=== PATIENT | female | born 1985 | race Caucasian/White ===

== ENCOUNTER 2024-08-06 09:45 | Outpatient (RCR) | payer OTHER, SELFPAY ==
--- NOTE | 2024-02-13 17:16 | PT.OIE ---
Current Diagnoses Stress incontinence (female) (male) (02/13/24) Past Medical History (Last Updated 01/23/24 @ 20:36 by Urszula Robles) Abnormal Pap smear of cervix (~2011) Anxiety Chicken pox (~1997) Depression (~2007) Human papilloma virus (~2012) KENNETH (stress urinary incontinence, female) Past Surgical History (Last Updated 01/23/24 @ 20:36 by Urszula Robles) Vaginal delivery Visit Care Team Role Provider Type Erica Neves DO Family Provider Non-Staff Primary Care Provider Specialty: Medical Address: [address] [place] [address], [id number] Email: Loretta Valdovinos DO Attending Provider Physician Referring Provider Specialty: PROFESSOR OF VEGETABLE SCIENCE Address: [address] [place] [address], [address], [address] Email: [email or web address] Physical Therapy Initial Evaluation PT-OP-A Visit Information Start: 02/07/24 17:13 Freq: Status: Active Protocol: Document 02/13/24 13:48 LRN (Rec: 02/13/24 17:11 LRN [id number]) Out-Patient Physical Therapy Visit Information Visit Information Visit Type Initial Evaluation Visit Start Time 13:48 Visit Stop Time 14:33 Visit Number 1 Evaluation Information Evaluation Date 02/13/24 Precautions Precautions None. PT-OP-B Current Condition Start: 02/07/24 17:13 Freq: Status: Active Protocol: Document 02/13/24 13:48 LRN (Rec: 02/13/24 17:11 LRN [id number]) Current Condition History of Current Condition Onset Date 10/2016 Current Complaints Leaks with running, jumping, sneezing, lifting, walking depending on cycle. History of Current Condition Pt reports having urinary incontinence during late stages of of her first (in the [place]). She states her leaking is worsening after because she is doing more strenuous exercise. She wears a thick pad at gym, that fills up and sometimes she has to change into another one. If seh ex's in the morning she can wear a thinner pad. She also reports going to the bathroom frequently. She has urinary leakage with exercise, running, sometimes walking, lifting, sneezing and coughing. Prior Treatments and Tests She was on a wait list for PT, but [place]. Developmental History Developmental History Pt has 2 children, ages 4 & 7 (births 12/2016 & 09/2019), both vaginal births. 1st resulted in episotomy with vacuum extraction, 2nd was in a tub, normal vaginal . Pt is a [place] national, living in since 11/2021. Pt states she was referred to Loretta Valdovinos DO by Erica Neves from the [employer]. . Prior to pt reports running 4-5x/wk, 3-5 miles per run. She was active playing basketball and hiking . Delivered positions: 1st - on back, 2nd - in bath, partially on back with L leg lifted and held by spouse. Treatment Goals Patient/Caregiver Goals Pt goals: Eliminate urinary incontinence with exercise activities and activities causing leakage. Pt agreeable to a HEP, and education. 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 PT-OP-C Subjective Start: 02/07/24 17:13 Freq: Status: Active Protocol: Document 02/13/24 13:48 LRN (Rec: 02/13/24 17:11 LRN [id number]) Patient Questionnaires Pelvic Pain and Urgency/Frequency Patient Symptom Scale Pelvic Pain Score 9 PT-OP-I Pelvic Floor Start: 02/07/24 17:13 Freq: Status: Active Protocol: Document 02/13/24 13:48 LRN (Rec: 02/13/24 17:11 LRN [id number]) Pelvic Floor Assessment Urine Pelvic Floor Surgery No: episiotomy during childbirth Urinary Symptoms Incomplete Emptying Leakage Size Large Leakage Cause Cough,Exercise,Lifting,Sneeze Leaks Per Day 1 Voiding Frequency 5 Nocturia 1 Urine Pad Type Maxi Pad Bowel Other Bowel Symptoms Just before period, BM's every other day. Bowel Movement Frequency daily Brown Stool Chart Comments type 3-4 Pelvic Clock Pelvic Clock 12-3 Tenderness Pelvic Clock 3-6 Tenderness Pelvic Clock 6-9 Tenderness Pelvic Clock 9-12 Tenderness Prolapse Cystocele Grade 2 Perineal Descent Bearing Present Contraction Ability Manual Muscle Testing Left 2 Manual Muscle Testing Right 2 Manual Muscle Testing Anterior 2 Manual Muscle Testing Posterior 1 Muscle Endurance (Seconds) 3 Number of Quick Contractions In 10 3 Seconds PT-OP-J Posture/Palpation/Skin Start: 02/07/24 17:13 Freq: Status: Active Protocol: Document 02/13/24 13:48 LRN (Rec: 02/13/24 17:11 LRN [id number]) Posture Evaluation Position Standing T-Spine Posture Flattened L-Spine Posture Decreased Lordosis Shoulder Posture (L) Elevated Foot Arch (R) Medium Arch,(L) Low Arch Comments Posture Comments Outward bowing of lower legs, mild dowagers hump, slight low L ilac crest. R foot positioned fwrd of L foot. Palpation Assessment Location Abdomen Palpation Location Diastas Rectus Palpation Details Umbilicus 3 above: closed Umbilicus 2 above: 1.0 finger widths Umbilicus 1 above: 1.5 finger widths Umbilicus Umbilicus: 1 below: 1.5 finger widths Umbilicus: 2 below: closed PT-OP-K Range of Motion Start: 02/07/24 17:13 Freq: Status: Active Protocol: Document 02/13/24 13:48 LRN (Rec: 02/13/24 17:11 LRN [id number]) Lumbar Spine Range of Motion Lumbar Spine Active Degrees Testing Position Standing Flexion 90 Extension 12 Rotation Left 20 Rotation Right 25 Lateral Flexion Left 12 Lateral Flexion Right 3 ROM Limitations Soft Tissue Tightness Hip Goniometric Range of Motion Hip Right Passive Testing Position Supine Internal Rotation 35 External Rotation 50 Left Passive Testing Position Supine Internal Rotation 40 External Rotation 35 PT-OP-M Strength Start: 02/07/24 17:13 Freq: Status: Active Protocol: Document 02/13/24 13:48 LRN (Rec: 02/13/24 17:11 LRN [id number]) Trunk Strength Trunk Manual Muscle Testing Core Stabilization Pt was able to maintain core stability with MMT of hips. Hip Strength Hip Manual Muscle Testing Right Comments Strength is 5/5. Left Internal Rotation 4+ Good+ Comments Strength is 5/5 except as indicated above. PT-OP-Q Treatments Start: 02/07/24 17:13 Freq: Status: Active Protocol: Document 02/13/24 13:48 LRN (Rec: 02/13/24 17:11 LRN [id number]) Self-Care/Home Management Treatment Education Patient Education Home Exercise Program Other Education Discussed results of evaluation, goals, and plan of care (POC) with pt, discussed attendance/cx/dns policy; pt agreeable to goals, attendance /cx/dns policy and POC. Activities Self-Care/Home Management Activities Issued HEP of Kegel ex's: Quick Flicks, Long holds, & Aggrevators. Pt instructed to get relaxation after contractions and to stop if getting PF pain. PT-OP-T Assessment and Plan Start: 02/07/24 17:13 Freq: Status: Active Protocol: Document 02/13/24 13:48 LRN (Rec: 02/13/24 17:11 LRN [id number]) Physical Therapy Assessment Rehab Potential Rehabilitation Potential Good Evaluation Complexity Number of Personal Factors/Comorbidities 1-2 Number of Body Systems Impaired 4 or More Clinical Presentation at Evaluation Evolving Impairments Impairments Activity Tolerance,Pain, Posture,ROM,Soft Tissue Mobility,Strength Other Impairments Possible run mechanics due to decreased plantar arch of L foot. Goals Two Impairment Stress Urinary Leakage w/ running, coughing, sneezing, lifting, occ walk Short Term Goal (STG) Improve PF strength and modify positioning to reduce feeling of incomplete emptying after urination, no leakage with coughing, sneezing or lifting. STG Duration 6 wks-03/28/24 Destination Imagination Coordinator Goal (LTG) Eliminate urinary incontinence with occasional walking and light running. LTG Duration 12 wks-05/09/24 One Impairment Pt lacks appropriate self care HEP. Short Term Goal (STG) Education in proper methods for transfer with coordination of breathing, PF contractions , and proper vulvar/genital care. STG Duration 6 wks-03/28/24 Senior Care Goal (LTG) Pt will be independent with a self care HEP of PF/core strengthening and hip/trunk ROM exercises. LTG Duration 12 wks-05/09/24 Assessment Summary Assessment Pt is a 38 yo female who presents with stress urinary incontinence, PF tenderness around the PF clock and weakness of contractions, cystocele, and urethrocele, asymmetry of hip/trunk mobility, mild diastasis rectus and mild core instability, and postural deviations with mechanical changes of gait/run. PF long hold strength is 3 secs and quick contractions before weakening of contraction is 3 reps. Pt has tightness of hip R>L IR, L>R ER; trunk R SB , L rot. She demonstrates mild decrease in core rot stability. The pt will benefit from skilled physical therapy to improve PF strength and tenderness, improve symmetry of hip/trunk mobility , and improve awareness to relax and normalize PF ms tone , and improve core stability, in order to achieve the above stated goals. Pt believes she is limited by her insurance to 6 visits at a time; therefore her long-term goals might not be met if she is not able to complete her plan of care due to financial concerns over the number of visits approved. Physical Therapy Plan Frequency and Duration Frequency of Treatment 1x/Week Duration of treatment (weeks) 12 Plan of Care Start Date 02/13/24 Plan of Care End Date 05/09/24 Therapeutic Interventions Therapeutic Interventions Gait Training,Home Exercise Program,Joint Mobilizations, Manual Therapy,Neuromuscular Re-education,Self-Care/Home Management,Soft Tissue Mobilization,Taping, Therapeutic Activities, Therapeutic Exercises Modalities Biofeedback,Electric Stimulation Next Visit Focus/Plan Next Note Type Treatment Note Next Visit Plan Next: Assess bladder diary (pt bowel's are normal) with recommendations as appropriate . Assess PF in standing. VEMG PF assessment. Check hip AB mobility and issue ex if needed. Deep Breathing (DB ) training if needed, and awareness training to relax PF with DBing, and breath relaxation techniques, EXERS: Hip stretch (R>L IR, L>R ER), trunk stretch (trunk R SB, L rot) & core strengthening ( deep rotators). Education in proper methods for transfer with coordination of breathing and genital/vulvar care, and proper body mechanics coordinating breathwork . If needed, educate in bladder irritants. POC: 12 visits, pt believes she is allowed 6 visits, with possible approval later. PF/ core Strengthening, EXER stretches, manual abdominal soft tissue mob (uterus/ bladder/urachus), Gait/ running training, biofeedback, neuro-reeduc.
--- NOTE | 2024-02-13 17:18 | PT.OIE ---
Current Diagnoses Stress incontinence (female) (male) (02/13/24) Past Medical History (Last Updated 01/23/24 @ 20:36 by Urszula Robles) Abnormal Pap smear of cervix (~2011) Anxiety Chicken pox (~1997) Depression (~2007) Human papilloma virus (~2012) KENNETH (stress urinary incontinence, female) Past Surgical History (Last Updated 01/23/24 @ 20:36 by Urszula Robles) Vaginal delivery Visit Care Team Role Provider Type Erica Neves DO Family Provider Non-Staff Primary Care Provider Specialty: Medical Address: [address] [place] [address], [id number] Email: Loretta Valdovinos DO Attending Provider Physician Referring Provider Specialty: ROUTE AGENT Address: [address] [place] [address], [address], [address] Email: [email or web address] Physical Therapy Initial Evaluation PT-OP-A Visit Information Start: 02/07/24 17:13 Freq: Status: Active Protocol: Document 02/13/24 13:48 LRN (Rec: 02/13/24 17:11 LRN [id number]) Out-Patient Physical Therapy Visit Information Visit Information Visit Type Initial Evaluation Visit Start Time 13:48 Visit Stop Time 14:33 Visit Number 1 Evaluation Information Evaluation Date 02/13/24 Precautions Precautions None. PT-OP-B Current Condition Start: 02/07/24 17:13 Freq: Status: Active Protocol: Document 02/13/24 13:48 LRN (Rec: 02/13/24 17:11 LRN [id number]) Current Condition History of Current Condition Onset Date 10/2016 Current Complaints Leaks with running, jumping, sneezing, lifting, walking depending on cycle. History of Current Condition Pt reports having urinary incontinence during late stages of of her first (in the [place]). She states her leaking is worsening after because she is doing more strenuous exercise. She wears a thick pad at gym, that fills up and sometimes she has to change into another one. If seh ex's in the morning she can wear a thinner pad. She also reports going to the bathroom frequently. She has urinary leakage with exercise, running, sometimes walking, lifting, sneezing and coughing. Prior Treatments and Tests She was on a wait list for PT, [place]. Developmental History Developmental History Pt has 2 children, ages 4 & 7 (births 12/2016 & 09/2019), both vaginal births. 1st resulted in episotomy with vacuum extraction, 2nd was in a tub, normal vaginal . Pt is a [place] national, living in since 11/2021. Pt states she was referred to Tamara Rider, [place] [place] [employer]. Prior to pt reports running 4-5x/wk, 3-5 miles per run. She was active playing basketball and hiking. Delivered positions: 1st - on back, 2nd - in bath, partially on back with L leg lifted and held by spouse. Treatment Goals Patient/Caregiver Goals Pt goals: Eliminate urinary incontinence with exercise activities and activities causing leakage. Pt agreeable to a HEP, and education. 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 PT-OP-C Subjective Start: 02/07/24 17:13 Freq: Status: Active Protocol: Document 02/13/24 13:48 LRN (Rec: 02/13/24 17:11 LRN [id number]) Patient Questionnaires Pelvic Pain and Urgency/Frequency Patient Symptom Scale Pelvic Pain Score 9 PT-OP-I Pelvic Floor Start: 02/07/24 17:13 Freq: Status: Active Protocol: Document 02/13/24 13:48 LRN (Rec: 02/13/24 17:11 LRN [id number]) Pelvic Floor Assessment Urine Pelvic Floor Surgery No: episiotomy during childbirth Urinary Symptoms Incomplete Emptying Leakage Size Large Leakage Cause Cough,Exercise,Lifting,Sneeze Leaks Per Day 1 Voiding Frequency 5 Nocturia 1 Urine Pad Type Maxi Pad Bowel Other Bowel Symptoms Just before period, BM's every other day. Bowel Movement Frequency daily [facility] Stool Chart Comments type 3-4 Pelvic Clock Pelvic Clock 12-3 Tenderness Pelvic Clock 3-6 Tenderness Pelvic Clock 6-9 Tenderness Pelvic Clock 9-12 Tenderness Prolapse Cystocele Grade 2 Perineal Descent Bearing Present Contraction Ability Manual Muscle Testing Left 2 Manual Muscle Testing Right 2 Manual Muscle Testing Anterior 2 Manual Muscle Testing Posterior 1 Muscle Endurance (Seconds) 3 Number of Quick Contractions In 10 3 Seconds PT-OP-J Posture/Palpation/Skin Start: 02/07/24 17:13 Freq: Status: Active Protocol: Document 02/13/24 13:48 LRN (Rec: 02/13/24 17:11 LRN [id number]) Posture Evaluation Position Standing T-Spine Posture Flattened L-Spine Posture Decreased Lordosis Shoulder Posture (L) Elevated Foot Arch (R) Medium Arch,(L) Low Arch Comments Posture Comments Outward bowing of lower legs, mild dowagers hump, slight low L ilac crest. R foot positioned fwrd of L foot. Palpation Assessment Location Abdomen Palpation Location Diastas Rectus Palpation Details Umbilicus 3 above: closed Umbilicus 2 above: 1.0 finger widths Umbilicus 1 above: 1.5 finger widths Umbilicus Umbilicus: 1 below: 1.5 finger widths Umbilicus: 2 below: closed PT-OP-K Range of Motion Start: 02/07/24 17:13 Freq: Status: Active Protocol: Document 02/13/24 13:48 LRN (Rec: 02/13/24 17:11 LRN [id number]) Lumbar Spine Range of Motion Lumbar Spine Active Degrees Testing Position Standing Flexion 90 Extension 12 Rotation Left 20 Rotation Right 25 Lateral Flexion Left 12 Lateral Flexion Right 3 ROM Limitations Soft Tissue Tightness Hip Goniometric Range of Motion Hip Right Passive Testing Position Supine Internal Rotation 35 External Rotation 50 Left Passive Testing Position Supine Internal Rotation 40 External Rotation 35 PT-OP-M Strength Start: 02/07/24 17:13 Freq: Status: Active Protocol: Document 02/13/24 13:48 LRN (Rec: 02/13/24 17:11 LRN [id number]) Trunk Strength Trunk Manual Muscle Testing Core Stabilization Pt was able to maintain core stability with MMT of hips. Hip Strength Hip Manual Muscle Testing Right Comments Strength is 5/5. Left Internal Rotation 4+ Good+ Comments Strength is 5/5 except as indicated above. PT-OP-Q Treatments Start: 02/07/24 17:13 Freq: Status: Active Protocol: Document 02/13/24 13:48 LRN (Rec: 02/13/24 17:11 LRN [id number]) Self-Care/Home Management Treatment Education Patient Education Home Exercise Program Other Education Discussed results of evaluation, goals, and plan of care (POC) with pt, discussed attendance/cx/dns policy; pt agreeable to goals, attendance /cx/dns policy and POC. Activities Self-Care/Home Management Activities Issued HEP of Kegel ex's: Quick Flicks, Long holds, & Aggrevators. Pt instructed to get relaxation after contractions and to stop if getting PF pain. PT-OP-T Assessment and Plan Start: 02/07/24 17:13 Freq: Status: Active Protocol: Document 02/13/24 13:48 LRN (Rec: 02/13/24 17:11 LRN [id number]) Physical Therapy Assessment Rehab Potential Rehabilitation Potential Good Evaluation Complexity Number of Personal Factors/Comorbidities 1-2 Number of Body Systems Impaired 4 or More Clinical Presentation at Evaluation Evolving Impairments Impairments Activity Tolerance,Pain, Posture,ROM,Soft Tissue Mobility,Strength Other Impairments Possible run mechanics due to decreased plantar arch of L foot. Goals Two Impairment Stress Urinary Leakage w/ running, coughing, sneezing, lifting, occ walk Short Term Goal (STG) Improve PF strength and modify positioning to reduce feeling of incomplete emptying after urination, no leakage with coughing, sneezing or lifting. STG Duration 6 wks-03/28/24 Jail Goal (LTG) Eliminate urinary incontinence with occasional walking and light running. LTG Duration 12 wks-05/09/24 One Impairment Pt lacks appropriate self care HEP. Short Term Goal (STG) Education in proper methods for transfer with coordination of breathing, PF contractions , and proper vulvar/genital care. STG Duration 6 wks-03/28/24 Regulatory Analyst Goal (LTG) Pt will be independent with a self care HEP of PF/core strengthening and hip/trunk ROM exercises. LTG Duration 12 wks-05/09/24 Assessment Summary Assessment Pt is a 38 yo female who presents with stress urinary incontinence, PF tenderness around the PF clock and weakness of contractions, cystocele, and urethrocele, asymmetry of hip/trunk mobility, mild diastasis rectus and mild core instability, and postural deviations with mechanical changes of gait/run. PF long hold strength is 3 secs and quick contractions before weakening of contraction is 3 reps. Pt has tightness of hip R>L IR, L>R ER; trunk R SB , L rot. She demonstrates mild decrease in core rot stability. The pt will benefit from skilled physical therapy to improve PF strength and tenderness, improve symmetry of hip/trunk mobility , and improve awareness to relax and normalize PF ms tone , and improve core stability, in order to achieve the above stated goals. Pt believes she is limited by her insurance to 6 visits at a time; therefore her long-term goals might not be met if she is not able to complete her plan of care due to financial concerns over the number of visits approved. Physical Therapy Plan Frequency and Duration Frequency of Treatment 1x/Week Duration of treatment (weeks) 12 Plan of Care Start Date 02/13/24 Plan of Care End Date 05/09/24 Therapeutic Interventions Therapeutic Interventions Gait Training,Home Exercise Program,Joint Mobilizations, Manual Therapy,Neuromuscular Re-education,Self-Care/Home Management,Soft Tissue Mobilization,Taping, Therapeutic Activities, Therapeutic Exercises Modalities Biofeedback,Electric Stimulation Next Visit Focus/Plan Next Note Type Treatment Note Next Visit Plan Next: Assess bladder diary (pt bowel's are normal) with recommendations as appropriate . Assess PF in standing. VEMG PF assessment. Check hip AB mobility and issue ex if needed. Deep Breathing (DB ) training if needed, and awareness training to relax PF with DBing, and breath relaxation techniques, EXERS: Hip stretch (R>L IR, L>R ER), trunk stretch (trunk R SB, L rot) & core strengthening ( deep rotators). Education in proper methods for transfer with coordination of breathing and genital/vulvar care, and proper body mechanics coordinating breathwork . If needed, educate in bladder irritants. POC: 12 visits, pt believes she is allowed 6 visits, with possible approval later. PF/ core Strengthening, EXER stretches, manual abdominal soft tissue mob (uterus/ bladder/urachus), Gait/ running training, biofeedback, neuro-reeduc.
--- NOTE | 2024-02-13 17:19 | PT.OPPOC ---
Addendum entered and electronically signed by Yoli Vazquez, PT 02/13/24 17:19: Resending Original Note: Physical, Occupational & Speech Therapy At [facility] Current Diagnoses Stress incontinence (female) (male) (02/13/24) Visit Care Team Role Provider Type Erica Neves DO Family Provider Non-Staff Primary Care Provider Specialty: Medical Address: [address] [place] [address], [id number] Email: Loretta Valdovinos DO Attending Provider Physician Referring Provider Specialty: FLOAT TENDER Address: [address] [place] [address], [address], [place], [address] Email: [email or web address] Of Care PT-OP-T Assessment and Plan Start: 02/07/24 17:13 Freq: Status: Active Protocol: Document 02/13/24 13:48 LRN (Rec: 02/13/24 17:11 LRN [id number]) Physical Therapy Assessment Rehab Potential Rehabilitation Potential Good Evaluation Complexity Number of Personal Factors/Comorbidities 1-2 Number of Body Systems Impaired 4 or More Clinical Presentation at Evaluation Evolving Impairments Impairments Activity Tolerance,Pain, Posture,ROM,Soft Tissue Mobility,Strength Other Impairments Possible run mechanics due to decreased plantar arch of L foot. Goals Two Impairment Stress Urinary Leakage w/ running, coughing, sneezing, lifting, occ walk Short Term Goal (STG) Improve PF strength and modify positioning to reduce feeling of incomplete emptying after urination, no leakage with coughing, sneezing or lifting. STG Duration 6 wks-03/28/24 Casino Floorperson Goal (LTG) Eliminate urinary incontinence with occasional walking and light running. LTG Duration 12 wks-05/09/24 One Impairment Pt lacks appropriate self care HEP. Short Term Goal (STG) Education in proper methods for transfer with coordination of breathing, PF contractions , and proper vulvar/genital care. STG Duration 6 wks-03/28/24 Penitentiary Goal (LTG) Pt will be independent with a self care HEP of PF/core strengthening and hip/trunk ROM exercises. LTG Duration 12 wks-05/09/24 Assessment Summary Assessment Pt is a 38 yo female who presents with stress urinary incontinence, PF tenderness around the PF clock and weakness of contractions, cystocele, and urethrocele, asymmetry of hip/trunk mobility, mild diastasis rectus and mild core instability, and postural deviations with mechanical changes of gait/run. PF long hold strength is 3 secs and quick contractions before weakening of contraction is 3 reps. Pt has tightness of hip R>L IR, L>R ER; trunk R SB , L rot. She demonstrates mild decrease in core rot stability. The pt will benefit from skilled physical therapy to improve PF strength and tenderness, improve symmetry of hip/trunk mobility , and improve awareness to relax and normalize PF ms tone , and improve core stability, in order to achieve the above stated goals. Pt believes she is limited by her insurance to 6 visits at a time; therefore her long-term goals might not be met if she is not able to complete her plan of care due to financial concerns over the number of visits approved. Physical Therapy Plan Frequency and Duration Frequency of Treatment 1x/Week Duration of treatment (weeks) 12 Plan of Care Start Date 02/13/24 Plan of Care End Date 05/09/24 Therapeutic Interventions Therapeutic Interventions Gait Training,Home Exercise Program,Joint Mobilizations, Manual Therapy,Neuromuscular Re-education,Self-Care/Home Management,Soft Tissue Mobilization,Taping, Therapeutic Activities, Therapeutic Exercises Modalities Biofeedback,Electric Stimulation Next Visit Focus/Plan Next Note Type Treatment Note Next Visit Plan Next: Assess bladder diary (pt bowel's are normal) with recommendations as appropriate . Assess PF in standing. VEMG PF assessment. Check hip AB mobility and issue ex if needed. Deep Breathing (DB ) training if needed, and awareness training to relax PF with DBing, and breath relaxation techniques, EXERS: Hip stretch (R>L IR, L>R ER), trunk stretch (trunk R SB, L rot) & core strengthening ( deep rotators). Education in proper methods for transfer with coordination of breathing and genital/vulvar care, and proper body mechanics coordinating breathwork . If needed, educate in bladder irritants. POC: 12 visits, pt believes she is allowed 6 visits, with possible approval later. PF/ core Strengthening, EXER stretches, manual abdominal soft tissue mob (uterus/ bladder/urachus), Gait/ running training, biofeedback, neuro-reeduc. Plan of Care Dates Plan of Care Start Date 02/13/24 Plan of Care End Date 05/09/24 Electronically Signed by: Yoli Vazquez, PT 02/13/24 6100 If you are in agreement with this Plan of Care, please return a signed and dated copy. I have reviewed this Plan of Care and certify that the skilled therapy services above are required to meet the patient?s needs. Physician Signature Date Printed Name and Credentials Clinical Instructor Signature Printed Name and Credentials
--- NOTE | 2024-02-20 17:37 | PT.OTN ---
Current Diagnoses Stress incontinence (female) (male) (02/20/24) Physical Therapy Treatment Note PT-OP-A Visit Information Start: 02/07/24 17:13 Freq: Status: Active Protocol: Document 02/20/24 07:22 LRN (Rec: 02/20/24 08:19 LRN [id number]) Out-Patient Physical Therapy Visit Information Visit Information Visit Type Treatment Note Visit Start Time 07:33 Visit Stop Time 08:15 Visit Number 2/6 Evaluation Information Evaluation Date 02/13/24 Precautions Precautions None. PT-OP-B Current Condition Start: 02/07/24 17:13 Freq: Status: Active Protocol: Document 02/13/24 13:48 LRN (Rec: 02/13/24 17:11 LRN [id number]) Current Condition History of Current Condition Onset Date 10/2016 Current Complaints Leaks with running, jumping, sneezing, lifting, walking depending on cycle. History of Current Condition Pt reports having urinary incontinence during late stages of of her first (in the [place]). She states her leaking is worsening after because she is doing more strenuous exercise. She wears a thick pad at gym, that fills up and sometimes she has to change into another one. If seh ex's in the morning she can wear a thinner pad. She also reports going to the bathroom frequently. She has urinary leakage with exercise, running, sometimes walking, lifting, sneezing and coughing. Prior Treatments and Tests She was on a wait list for PT, but [place]. Developmental History Developmental History Pt has 2 children, ages 4 & 7 (births 12/2016 & 09/2019), both vaginal births. 1st resulted in episotomy with vacuum extraction, 2nd was in a tub, normal vaginal . Pt is a [place] national, living in since 11/2021. Pt states she was [place] to [facility] Prior to pt reports running 4-5x/wk, 3-5 miles per run. She was active playing basketball and hiking. Delivered positions: 1st - on back, 2nd - in bath, partially on back with L leg lifted and held by spouse. Treatment Goals Patient/Caregiver Goals Pt goals: Eliminate urinary incontinence with exercise activities and activities causing leakage. Pt agreeable to a HEP, and education. 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 PT-OP-C Subjective Start: 02/07/24 17:13 Freq: Status: Active Protocol: Document 02/20/24 07:22 LRN (Rec: 02/20/24 08:19 LRN [id number]) OP-PT Subjective Patient Comments Patient Comments Pt wanting review of stretches she is doing at end of treatment. PT-OP-I Pelvic Floor Start: 02/07/24 17:13 Freq: Status: Active Protocol: Document 02/20/24 07:22 LRN (Rec: 02/20/24 08:19 LRN [id number]) Pelvic Floor Assessment Comments Pelvic Floor Comments Quick Flicks: 10 reps strength (uV's): avg work , avg rest . 20 reps strength (uV's): avg work , avg rest . Long Holds: 10 reps strength (uV's): avg work , avg rest . 20 reps strength (uV's): avg work , avg rest . PT-OP-J Posture/Palpation/Skin Start: 02/07/24 17:13 Freq: Status: Active Protocol: Document 02/13/24 13:48 LRN (Rec: 02/13/24 17:11 LRN [id number]) Posture Evaluation Position Standing T-Spine Posture Flattened L-Spine Posture Decreased Lordosis Shoulder Posture (L) Elevated Foot Arch (R) Medium Arch,(L) Low Arch Comments Posture Comments Outward bowing of lower legs, mild dowagers hump, slight low L ilac crest. R foot positioned fwrd of L foot. Palpation Assessment Location Abdomen Palpation Location Diastas Rectus Palpation Details Umbilicus 3 above: closed Umbilicus 2 above: 1.0 finger widths Umbilicus 1 above: 1.5 finger widths Umbilicus Umbilicus: 1 below: 1.5 finger widths Umbilicus: 2 below: closed PT-OP-K Range of Motion Start: 02/07/24 17:13 Freq: Status: Active Protocol: Document 02/13/24 13:48 LRN (Rec: 02/13/24 17:11 LRN [id number]) Lumbar Spine Range of Motion Lumbar Spine Active Degrees Testing Position Standing Flexion 90 Extension 12 Rotation Left 20 Rotation Right 25 Lateral Flexion Left 12 Lateral Flexion Right 3 ROM Limitations Soft Tissue Tightness Hip Goniometric Range of Motion Hip Right Passive Testing Position Supine Internal Rotation 35 External Rotation 50 Left Passive Testing Position Supine Internal Rotation 40 External Rotation 35 PT-OP-M Strength Start: 02/07/24 17:13 Freq: Status: Active Protocol: Document 02/13/24 13:48 LRN (Rec: 02/13/24 17:11 LRN [id number]) Trunk Strength Trunk Manual Muscle Testing Core Stabilization Pt was able to maintain core stability with MMT of hips. Hip Strength Hip Manual Muscle Testing Right Comments Strength is 5/5. Left Internal Rotation 4+ Good+ Comments Strength is 5/5 except as indicated above. PT-OP-Q Treatments Start: 02/07/24 17:13 Freq: Status: Active Protocol: Document 02/20/24 07:22 LRN (Rec: 02/20/24 08:19 LRN [id number]) Therapeutic Exercises Supine Exercises Piriformis stretch Supine Exercise Name Piriformis stretch Side bilateral Reps/Minutes 4' Comments Extra time to determine max tolerated stretch Kegel w/relaxation push Supine Exercise Name Kegel w/relaxation push review . Reps/Minutes 2x during therapy Sitting Exercises Piriformis stretch Side right Reps/Minutes 1' Comments Pt I/S to do bilateral Other Exercises Pt's own HEP Other Exercise Name Review of her floor stretches (frog stretch holding ankles vs toes) Reps/Minutes 2' Comments Verbal review as pt showed poses of stretches, one modification of Frog ex Manual Therapy Treatment Soft Tissue Mobilization PF Body Location PF stretching Mobilization Type Sustained Pressure,Trigger Point Release Intensity/Depth Superficial>moderate Body Position Hooklying Self-Care/Home Management Treatment Education Other Education Reviewed Bladder dairy and discussed fluid intake (AM/PM) , timing of fluids, norms for fluid intake based on wgt, avg of intake, relaxation of PF with voiding, pt method of urinating and recommendations to reduce need for modifications to voiding (less bladder irritants and full void before running. Discussed Bladder irritants ( Foods & Beverages Bladder Diet ). PF tightness and effect on PF strength. Discussed POC for today: PF stretch vs Vemg biofeedback. Pt choosing to receive PF stretching HEP vs Vemg. Pt wanting to go running later today. & nighttime voiding frequency. Pt education and lengthy discussion of how to have Bowel movements. bowel movements without holding breath and discussed squatty potty, with handout issued for squatty potty. Pt lengthy education and discussion in Urinary urge technique with handout issued. Pt education proper vulvar and perineal care with handout issued. Pt educated in PF muscles and internal organ positioning, explaining cystocele and rectocele and discussed how this can worsen with decreased bowel mobility and breath holding. Discussed different pads and usage (urine vs menstrual). Discussed bladder irritants. Activities Self-Care/Home Management Activities Issued Bladder Irritant handout (Foods & Beverages Bladder Diet). PT-OP-T Assessment and Plan Start: 02/07/24 17:13 Freq: Status: Active Protocol: Document 02/20/24 07:22 LRN (Rec: 02/20/24 08:19 LRN [id number]) Physical Therapy Assessment Goals Two Impairment Stress Urinary Leakage w/ running, coughing, sneezing, lifting, occ walk Short Term Goal (STG) Improve PF strength and modify positioning to reduce feeling of incomplete emptying after urination, no leakage with coughing, sneezing or lifting. STG Duration 6 wks-03/28/24 Hoist Mechanic Goal (LTG) Eliminate urinary incontinence with occasional walking and light running. LTG Duration 12 wks-05/09/24 One Impairment Pt lacks appropriate self care HEP. Short Term Goal (STG) Education in proper methods for transfer with coordination of breathing, PF contractions , and proper vulvar/genital care. STG Duration 6 wks-03/28/24 Longterm Goal (LTG) Pt will be independent with a self care HEP of PF/core strengthening and hip/trunk ROM exercises. 02/20/24: Reviewed briefly pt 's current stretches she does for running. LTG Duration 12 wks-05/09/24 progressed 02/20/24 Assessment Summary Assessment 38 yo female who presents with KENNETH, PF tenderness/tightness around the PF clock and weakness of contractions, cystocele, and urethrocele, asymmetry of hip/trunk mobility, mild diastasis rectus, mild core instability, and postural deviations with mechanical changes of gait/run . Per bladder diary pt is drinking enough fluids (normal BMs), but drinks 32 oz before running and is drinking tea ( sometimes herbal). Times between voids are mostly normal, usually 2-4 hrs. Urinary voiding normal except just before running, 1/2 time of her normal voids. Pt KENNETH appears to be due to tight PF and excessive fluids before running. Physical Therapy Plan Frequency and Duration Frequency of Treatment 1x/Week Duration of treatment (weeks) 12 Plan of Care Start Date 02/13/24 Plan of Care End Date 05/09/24 Next Visit Focus/Plan Next Note Type Treatment Note Next Visit Plan Next: Assess PF in standing. Check hip AB mobility and issue ex if needed. VEMG PF assessment. Deep Breathing (DB) training if needed, and awareness training to relax PF with DBing, and breath relaxation techniques, EXERS: Hip stretch (R>L IR, L >R ER), trunk stretch (trunk R SB, L rot) & core strengthening (deep rotators). Genital/vulvar care, transfers and body mechanics coordinating breathwork for PF stretch. POC: 12 visits, pt believes she is allowed 6 visits, with possible approval later. PF/ core Strengthening, EXER stretches, manual abdominal soft tissue mob (uterus/ bladder/urachus), Gait/ running training, biofeedback, neuro-reeduc.
--- NOTE | 2024-03-06 14:02 | PT.OTN ---
Current Diagnoses Stress incontinence (female) (male) (03/06/24) Physical Therapy Treatment Note PT-OP-A Visit Information Start: 02/07/24 17:13 Freq: Status: Active Protocol: Document 03/06/24 13:02 LRN (Rec: 03/06/24 14:01 LRN [id number]) Out-Patient Physical Therapy Visit Information Visit Information Visit Type Treatment Note Visit Start Time 13:02 Visit Stop Time 13:42 Visit Number 3/ Evaluation Information Evaluation Date 02/13/24 Precautions Precautions None. PT-OP-B Current Condition Start: 02/07/24 17:13 Freq: Status: Active Protocol: Document 02/13/24 13:48 LRN (Rec: 02/13/24 17:11 LRN [id number]) Current Condition History of Current Condition Onset Date 10/2016 Current Complaints Leaks with running, jumping, sneezing, lifting, walking depending on cycle. History of Current Condition Pt reports having urinary incontinence during late stages of of her first (in the [place]). She states her leaking is worsening after because she is doing more strenuous exercise. She wears a thick pad at gym, that fills up and sometimes she has to change into another one. If seh ex's in the morning she can wear a thinner pad. She also reports going to the bathroom frequently. She has urinary leakage with exercise, running, sometimes walking, lifting, sneezing and coughing. Prior Treatments and Tests She was on a wait list for PT, [place]. Developmental History Developmental History Pt has 2 children, ages 4 & 7 (births 12/2016 & 09/2019), both vaginal births. 1st resulted in episotomy with vacuum extraction, 2nd was in a tub, normal vaginal . Pt is a [place] national, living in since 11/2021. Pt states she was referred to [facility], [place] Prior to pt reports running 4-5x/wk, 3-5 miles per run. She was active playing basketball and hiking. Delivered positions: 1st - on back, 2nd - in bath, partially on back with L leg lifted and held by spouse. Treatment Goals Patient/Caregiver Goals Pt goals: Eliminate urinary incontinence with exercise activities and activities causing leakage. Pt agreeable to a HEP, and education. 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 PT-OP-C Subjective Start: 02/07/24 17:13 Freq: Status: Active Protocol: Document 03/06/24 13:02 LRN (Rec: 03/06/24 14:01 LRN [id number]) OP-PT Subjective Patient Comments Patient Comments No changes. PT-OP-I Pelvic Floor Start: 02/07/24 17:13 Freq: Status: Active Protocol: Document 02/20/24 07:22 LRN (Rec: 02/20/24 08:19 LRN [id number]) Pelvic Floor Assessment Comments Pelvic Floor Comments Quick Flicks: 10 reps strength (uV's): avg work , avg rest . 20 reps strength (uV's): avg work , avg rest . Long Holds: 10 reps strength (uV's): avg work , avg rest . 20 reps strength (uV's): avg work , avg rest . PT-OP-J Posture/Palpation/Skin Start: 02/07/24 17:13 Freq: Status: Active Protocol: Document 02/13/24 13:48 LRN (Rec: 02/13/24 17:11 LRN [id number]) Posture Evaluation Position Standing T-Spine Posture Flattened L-Spine Posture Decreased Lordosis Shoulder Posture (L) Elevated Foot Arch (R) Medium Arch,(L) Low Arch Comments Posture Comments Outward bowing of lower legs, mild dowagers hump, slight low L ilac crest. R foot positioned fwrd of L foot. Palpation Assessment Location Abdomen Palpation Location Diastas Rectus Palpation Details Umbilicus 3 above: closed Umbilicus 2 above: 1.0 finger widths Umbilicus 1 above: 1.5 finger widths Umbilicus Umbilicus: 1 below: 1.5 finger widths Umbilicus: 2 below: closed PT-OP-K Range of Motion Start: 02/07/24 17:13 Freq: Status: Active Protocol: Document 03/06/24 13:02 LRN (Rec: 03/06/24 14:01 LRN [id number]) Hip Goniometric Range of Motion Hip Right Passive Testing Position Supine Abduction 40 Internal Rotation 35 External Rotation 50 Left Passive Testing Position Supine Abduction 40 Internal Rotation 40 External Rotation 35 PT-OP-M Strength Start: 02/07/24 17:13 Freq: Status: Active Protocol: Document 02/13/24 13:48 LRN (Rec: 02/13/24 17:11 LRN [id number]) Trunk Strength Trunk Manual Muscle Testing Core Stabilization Pt was able to maintain core stability with MMT of hips. Hip Strength Hip Manual Muscle Testing Right Comments Strength is 5/5. Left Internal Rotation 4+ Good+ Comments Strength is 5/5 except as indicated above. PT-OP-Q Treatments Start: 02/07/24 17:13 Freq: Status: Active Protocol: Document 03/06/24 13:02 LRN (Rec: 03/06/24 14:01 LRN [id number]) Therapeutic Exercises Supine Exercises Hip ER stretch Supine Exercise Name Hip ER stretch Side bilateral Reps/Minutes x 2 Comments PROM taken Normal breath Supine Exercise Name Normal breath for PF awareness of contract/relax. Reps/Minutes 3' Hip AB Supine Exercise Name Stretch hip AD's Side bilateral Reps/Minutes 1x Comments AB is 40 deg's bilaterally Deep Breathing Supine Exercise Name DB for awareness of PF, and DB w/reverse Kegel Reps/Minutes 15x Piriformis stretch Supine Exercise Name Hip IR stretch Side bilateral Reps/Minutes x 2 Comments PROM taken Sitting Exercises Hip AD stretch Sitting Exercise Name SL on plinth Side left Reps/Minutes 2' Piriformis stretch Sitting Exercise Name Side sit: Front leg in ER, back leg ext, rocking medial/ latera. Side right Reps/Minutes 1x for multilple rocking Standing Exercises PF contract/relax Reps/Minutes 3x Comments Cystocele 2 standing. Other Exercises Modified Child's pose Other Exercise Name Leaning over bolster + 2pillows for Deep breath/abdom & PF stretch Reps/Minutes 8' Comments Extra time to switch from child's pose > modified pose for painfree stretch Neuro Re-Education Treatment Coordination Activities Transfers w/breath/Reverse Kegel Details Reverse Kegel on inhale, but not in standing. Reps/Duration 10' Self-Care/Home Management Treatment Education Patient Education Home Exercise Program Other Education Education in proper methods for transfer with coordination of breathing/PF relaxation. Activities Self-Care/Home Management Activities Issued & reviewed HEP: Diaphragmatic Beathing w/ instruction to do reverse Kegel with inhale, except when in instanding.. PT-OP-T Assessment and Plan Start: 02/07/24 17:13 Freq: Status: Active Protocol: Document 03/06/24 13:02 LRN (Rec: 03/06/24 14:01 LRN [id number]) Physical Therapy Assessment Goals Two Impairment Stress Urinary Leakage w/ running, coughing, sneezing, lifting, occ walk Short Term Goal (STG) Improve PF strength and modify positioning to reduce feeling of incomplete emptying after urination, no leakage with coughing, sneezing or lifting. STG Duration 6 wks-03/28/24 Technical Intern Goal (LTG) Eliminate urinary incontinence with occasional walking and light running. LTG Duration 12 wks-05/09/24 One Impairment Pt lacks appropriate self care HEP. Short Term Goal (STG) Education in proper methods for transfer with coordination of breathing, PF contractions , and proper vulvar/genital care. 03/06/24: Pt educated in proper method for trnasfer w/ coordination of breathing, PF relaxation. STG Duration 6 wks-03/28/24 progressed (need ed vulvar/genital care) Technical Intern Goal (LTG) Pt will be independent with a self care HEP of PF/core strengthening and hip/trunk ROM exercises. 02/20/24: Reviewed briefly pt 's current stretches she does for running. LTG Duration 12 wks-05/09/24 progressed 02/20/24 Assessment Summary Assessment 38 yo female who presents with KENNETH, PF tenderness/tightness around the PF clock; therefore weakness of contractions, mild cystocele, and urethrocele, asymmetry of hip/ trunk mobility, mild diastasis rectus, mild core instability , and postural deviations with mechanical changes of gait/ run. Today in standing pt demonstrates cystocele grade 1 -2, no falling out of PF even with cough. Hip AB mobility is good. Wilber groin discomfort with child's pose; due to tight hip ER's. Physical Therapy Plan Frequency and Duration Frequency of Treatment 1x/Week Duration of treatment (weeks) 12 Plan of Care Start Date 02/13/24 Plan of Care End Date 05/09/24 Next Visit Focus/Plan Next Note Type Treatment Note Next Visit Plan Next: VEMG PF assessment when available. Review Deep Breathing (DB) and relaxation of PF with DBing. Assess consistency with breath relaxation techniques. Educate Genital/vulvar care EXERS: Add & HEP: Hip stretch (R>L IR, L>R ER), trunk stretch (trunk R SB, L rot) & core strengthening ( deep rotators). Educate in body mechanics coordinating breathwork for PF stretch. POC: 12 visits, pt believes she is allowed 6 visits, with possible approval later. PF/ core Strengthening, EXER stretches, manual abdominal soft tissue mob (uterus/ bladder/urachus), Gait/ running training, biofeedback, neuro-reeduc.
--- NOTE | 2024-03-24 15:55 | PT.OTN ---
Current Diagnoses Stress incontinence (female) (male) (03/24/24) Physical Therapy Treatment Note PT-OP-A Visit Information Start: 02/07/24 17:13 Freq: Status: Active Protocol: Document 03/24/24 14:35 LRN (Rec: 03/24/24 15:54 LRN [id number]) Out-Patient Physical Therapy Visit Information Visit Information Visit Type Treatment Note Visit Start Time 14:35 Visit Stop Time 15:25 Visit Number 5/6 Evaluation Information Evaluation Date 02/13/24 Precautions Precautions None. PT-OP-B Current Condition Start: 02/07/24 17:13 Freq: Status: Active Protocol: Document 02/13/24 13:48 LRN (Rec: 02/13/24 17:11 LRN [id number]) Current Condition History of Current Condition Onset Date 10/2016 Current Complaints Leaks with running, jumping, sneezing, lifting, walking depending on cycle. History of Current Condition Pt reports having urinary incontinence during late stages of of her first (in the [place]). She states her leaking is worsening after because she is doing more strenuous exercise. She wears a thick pad at gym, that fills up and sometimes she has to change into another one. If seh ex's in the morning she can wear a thinner pad. She also reports going to the bathroom frequently. She has urinary leakage with exercise, running, sometimes walking, lifting, sneezing and coughing. Prior Treatments and Tests She was on a wait list for PT, but [place]. Developmental History Developmental History Pt has 2 children, ages 4 & 7 (births 12/2016 & 09/2019), both vaginal births. 1st resulted in episotomy with vacuum extraction, 2nd was in a tub, normal vaginal . Pt is a [place] national, living in since 11/2021. Pt states she was [place] to [facility] [place] Prior to pt reports running 4-5x/wk, 3-5 miles per run. She was active playing basketball and hiking. Delivered positions: 1st - on back, 2nd - in bath, partially on back with L leg lifted and held by spouse. Treatment Goals Patient/Caregiver Goals Pt goals: Eliminate urinary incontinence with exercise activities and activities causing leakage. Pt agreeable to a HEP, and education. 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 PT-OP-C Subjective Start: 02/07/24 17:13 Freq: Status: Active Protocol: Document 03/24/24 14:35 LRN (Rec: 03/24/24 15:54 LRN [id number]) OP-PT Subjective Patient Comments Patient Comments Still leaking with running. PT-OP-I Pelvic Floor Start: 02/07/24 17:13 Freq: Status: Active Protocol: Document 03/24/24 14:35 LRN (Rec: 03/24/24 15:54 LRN [id number]) Pelvic Floor Assessment SEMG (uV) Baseline 1.0 Quick Contraction 8.9 10 Second Contraction 8.9 Recruitment Pattern Good Relaxation Poor/Slow Holding Fair Stability of Hold Fair SEMG Stability of Rest Poor/Slow Comments Pelvic Floor Comments Pt supine w/LE's on bolster, hands across chest. Quick Contractions: 10x relax is 4.8 mV's Long Hold: 10x relax is 2.8 mV's. PT-OP-J Posture/Palpation/Skin Start: 02/07/24 17:13 Freq: Status: Active Protocol: Document 02/13/24 13:48 LRN (Rec: 02/13/24 17:11 LRN [id number]) Posture Evaluation Position Standing T-Spine Posture Flattened L-Spine Posture Decreased Lordosis Shoulder Posture (L) Elevated Foot Arch (R) Medium Arch,(L) Low Arch Comments Posture Comments Outward bowing of lower legs, mild dowagers hump, slight low L ilac crest. R foot positioned fwrd of L foot. Palpation Assessment Location Abdomen Palpation Location Diastas Rectus Palpation Details Umbilicus 3 above: closed Umbilicus 2 above: 1.0 finger widths Umbilicus 1 above: 1.5 finger widths Umbilicus Umbilicus: 1 below: 1.5 finger widths Umbilicus: 2 below: closed PT-OP-K Range of Motion Start: 02/07/24 17:13 Freq: Status: Active Protocol: Document 03/06/24 13:02 LRN (Rec: 03/06/24 14:01 LRN [id number]) Hip Goniometric Range of Motion Hip Right Passive Testing Position Supine Abduction 40 Internal Rotation 35 External Rotation 50 Left Passive Testing Position Supine Abduction 40 Internal Rotation 40 External Rotation 35 PT-OP-M Strength Start: 02/07/24 17:13 Freq: Status: Active Protocol: Document 02/13/24 13:48 LRN (Rec: 02/13/24 17:11 LRN [id number]) Trunk Strength Trunk Manual Muscle Testing Core Stabilization Pt was able to maintain core stability with MMT of hips. Hip Strength Hip Manual Muscle Testing Right Comments Strength is 5/5. Left Internal Rotation 4+ Good+ Comments Strength is 5/5 except as indicated above. PT-OP-Q Treatments Start: 02/07/24 17:13 Freq: Status: Active Protocol: Document 03/24/24 14:35 LRN (Rec: 03/24/24 15:54 LRN [id number]) Therapeutic Exercises Prone Exercises VINCE Prone Exercise Name VINCE abdominal stretch Reps/Minutes 3 Breath hold x 6 Other Exercises Modified Child's pose Other Exercise Name Child's Pose - hip AD stretch w/gentle reverse Kegel f/b Kegel to end Reps/Minutes 10x Therapeutic Activity Therapeutic Activity Run activity Name Reviewed run breathwork Reps/Minutes 2' Comments Pt has routine of breathwork with running that sounds appropriate, further assessment needed. Body mechanics training w/core pressure mgmt Name Lifting, bending, squatting training w/core pressure mgmt through breathwor Reps/Minutes 4' Comments Pt able to perform correctly after training Transfer training w/core pressure management Name Transfer training sup<>sit<> stand w/core pressure mgmt through breathwork Reps/Minutes 5' Comments Pt able to perform correctly with practice/training Neuro Re-Education Treatment Other Activities Vemg Details Resting tone, Quick Contractions and Long hold contractions f/b relaxation. Reps/Duration 31' Comments See PF assessent above. Self-Care/Home Management Treatment Education Other Education Educated pt in Genital/vulvar care (answering/discussing pt' s questions regarding language - pantyhose vs stockings) and body mechanics trng for coordinating breathwork for core pressure managment. Discussed pt use of breath for PF stretch. Activities Self-Care/Home Management Activities Issued handouts for vulvar/ genital care and transfers for core pressure management. PT-OP-T Assessment and Plan Start: 02/07/24 17:13 Freq: Status: Active Protocol: Document 03/24/24 14:35 LRN (Rec: 03/24/24 15:54 LRN [id number]) Physical Therapy Assessment Rehab Potential Rehabilitation Potential Good Evaluation Complexity Number of Personal Factors/Comorbidities 1-2 Number of Body Systems Impaired 4 or More Clinical Presentation at Evaluation Evolving Impairments Impairments Activity Tolerance,Pain, Posture,ROM,Soft Tissue Mobility,Strength Other Impairments Possible run mechanics due to decreased plantar arch of L foot. Goals Two Impairment Stress Urinary Leakage w/ running, coughing, sneezing, lifting, occ walk Short Term Goal (STG) Improve PF strength and modify positioning to reduce feeling of incomplete emptying after urination, no leakage with coughing, sneezing or lifting. STG Duration 6 wks-03/28/24 Shredder Operator Goal (LTG) Eliminate urinary incontinence with occasional walking and light running. LTG Duration 12 wks-05/09/24 One Impairment Pt lacks appropriate self care HEP. Short Term Goal (STG) Education in proper methods for transfer with coordination of breathing, PF contractions , and proper vulvar/genital care. 03/06/24: Pt educated in proper method for transfer w/ coordination of breathing, PF relaxation. 03/24/24: Pt educated in vulvar/genital care. STG Duration 03/24/24: MET GOAL Penitentiary Goal (LTG) Pt will be independent with a self care HEP of PF/core strengthening and hip/trunk ROM exercises. 02/20/24: Reviewed briefly pt 's current stretches she does for running. 03/17/24: HEP: Piriformis stretch (sup & sit), prone on elbows/hands, loreta BKFO, SL hip AD stretch and sup trunk rot stretch and sit stretch w/ instructions to do in standing . LTG Duration 12 wks-05/09/24 progressed 03/17/24 Assessment Summary Assessment 38 yo female who presents with KENNETH, PF tenderness/tightness around the PF clock; therefore weakness of contractions, mild cystocele, and urethrocele, asymmetry of hip/ trunk mobility, mild diastasis rectus, mild core instability , and postural deviations with possible mechanical changes of gait/run and difficulty doing a proper deep breath ( instead chest breathing). Today pt is reporting still having urinary leakage with running, sometimes walking, lifting, sneezing and coughing . Tightness of PF along with weakness is present, making treatment more difficulty as relaxation after contraction training is needed. Per Vemg exer assessment, her resting tone was 1.0 mV's but with contractions avg rest was 2.8 mV's (long hold) and 4.8 mV's (quick holds). Long hold after 10 reps was fair to poor holding stability and by 20 reps was poor. Overall she is improving with ability to run longer w/o urinary leakage , but continuation of skilled physical therapy is recommended to improve coordination of her PF muscles in order to improve her PF strength and endurance without creating PF tightness, to improve coordination of her breath for core pressure management, improve trunk/hip mobility, and improve diastasis rectus, mild core instability and gait mechanics . Use of biofeedback and Electrical Stimulation to the PF would be helpful in improving pt awareness of PF contractions and muscle relaxation. Physical Therapy Plan Frequency and Duration Frequency of Treatment 1x/Week Duration of treatment (weeks) 12 Plan of Care Start Date 02/13/24 Plan of Care End Date 05/09/24 Therapeutic Interventions Therapeutic Interventions Gait Training,Home Exercise Program,Joint Mobilizations, Manual Therapy,Neuromuscular Re-education,Self-Care/Home Management,Soft Tissue Mobilization,Taping, Therapeutic Activities, Therapeutic Exercises Modalities Biofeedback,Electric Stimulation Next Visit Focus/Plan Next Note Type Treatment Note Next Visit Plan (Note: pt wanting to do marathon at end of March and in May). Next: Review Deep Breathing ( DB) and core pressure management. Assess hip/trunk mobility in 1-2 wks for improvement. Add & HEP: core strengthening (deep rotators). Gt/Run: Assess for deviations (breathing, posture, core/ ribs/foot-ankle positioning). EXERS to monitor: Hip stretch (R>L IR, L>R ER), trunk stretch (trunk R SB, L rot). VEMG PF training for relaxation and strengthening ( Long . Quick contractios). POC: 12 visits, pt believes she is allowed 6 visits, with possible approval later. PF/ core Strengthening, EXER stretches, manual abdominal soft tissue mob (uterus/ bladder/urachus), Gait/ running training, biofeedback, neuro-reeduc.
--- NOTE | 2024-04-16 11:08 | PT.OTN ---
Current Diagnoses Stress incontinence (female) (male) (04/16/24) Physical Therapy Treatment Note PT-OP-A Visit Information Start: 02/07/24 17:13 Freq: Status: Active Protocol: Document 04/16/24 09:52 LRN (Rec: 04/16/24 11:08 LRN [id number]) Out-Patient Physical Therapy Visit Information Visit Information Visit Type Treatment Note Visit Note Pt states she has been allowed 6 more visits. Visit Start Time 09:52 Visit Stop Time 10:43 Visit Number 05/06 Evaluation Information Evaluation Date 02/13/24 Precautions Precautions None. PT-OP-B Current Condition Start: 02/07/24 17:13 Freq: Status: Active Protocol: Document 02/13/24 13:48 LRN (Rec: 02/13/24 17:11 LRN [id number]) Current Condition History of Current Condition Onset Date 10/2016 Current Complaints Leaks with running, jumping, sneezing, lifting, walking depending on cycle. History of Current Condition Pt reports having urinary incontinence during late stages of of her first (in the [place]). She states her leaking is worsening after because she is doing more strenuous exercise. She wears a thick pad at gym, that fills up and sometimes she has to change into another one. If seh ex's in the morning she can wear a thinner pad. She also reports going to the bathroom frequently. She has urinary leakage with exercise, running, sometimes walking, lifting, sneezing and coughing. Prior Treatments and Tests She was on a wait list for PT, but [place]. Developmental History Developmental History Pt has 2 children, ages 4 & 7 (births 12/2016 & 09/2019), both vaginal births. 1st resulted in episotomy with vacuum extraction, 2nd was in a tub, normal vaginal . Pt is a [place] national, living in since 11/2021. Pt states she was referred to [facility], [place]. Prior to pt reports running 4-5x/wk, 3-5 miles per run. She was active playing basketball and hiking. Delivered positions: 1st - on back, 2nd - in bath, partially on back with L leg lifted and held by spouse. Treatment Goals Patient/Caregiver Goals Pt goals: Eliminate urinary incontinence with exercise activities and activities causing leakage. Pt agreeable to a HEP, and education. 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 PT-OP-C Subjective Start: 02/07/24 17:13 Freq: Status: Active Protocol: Document 04/16/24 09:52 LRN (Rec: 04/16/24 11:08 LRN [id number]) OP-PT Subjective Patient Comments Patient Comments States she can't get back in until April right now. Run planned for Sat, having a pessary fitting today. Doing a timed run in summer. PT-OP-I Pelvic Floor Start: 02/07/24 17:13 Freq: Status: Active Protocol: Document 03/24/24 14:35 LRN (Rec: 03/24/24 15:54 LRN [id number]) Pelvic Floor Assessment SEMG (uV) Baseline 1.0 Quick Contraction 8.9 10 Second Contraction 8.9 Recruitment Pattern Good Relaxation Poor/Slow Holding Fair Stability of Hold Fair SEMG Stability of Rest Poor/Slow Comments Pelvic Floor Comments Pt supine w/LE's on bolster, hands across chest. Quick Contractions: 10x relax is 4.8 mV's Long Hold: 10x relax is 2.8 mV's. PT-OP-J Posture/Palpation/Skin Start: 02/07/24 17:13 Freq: Status: Active Protocol: Document 02/13/24 13:48 LRN (Rec: 02/13/24 17:11 LRN [id number]) Posture Evaluation Position Standing T-Spine Posture Flattened L-Spine Posture Decreased Lordosis Shoulder Posture (L) Elevated Foot Arch (R) Medium Arch,(L) Low Arch Comments Posture Comments Outward bowing of lower legs, mild dowagers hump, slight low L ilac crest. R foot positioned fwrd of L foot. Palpation Assessment Location Abdomen Palpation Location Diastas Rectus Palpation Details Umbilicus 3 above: closed Umbilicus 2 above: 1.0 finger widths Umbilicus 1 above: 1.5 finger widths Umbilicus Umbilicus: 1 below: 1.5 finger widths Umbilicus: 2 below: closed PT-OP-K Range of Motion Start: 02/07/24 17:13 Freq: Status: Active Protocol: Document 03/06/24 13:02 LRN (Rec: 03/06/24 14:01 LRN [id number]) Hip Goniometric Range of Motion Hip Right Passive Testing Position Supine Abduction 40 Internal Rotation 35 External Rotation 50 Left Passive Testing Position Supine Abduction 40 Internal Rotation 40 External Rotation 35 PT-OP-M Strength Start: 02/07/24 17:13 Freq: Status: Active Protocol: Document 02/13/24 13:48 LRN (Rec: 02/13/24 17:11 LRN [id number]) Trunk Strength Trunk Manual Muscle Testing Core Stabilization Pt was able to maintain core stability with MMT of hips. Hip Strength Hip Manual Muscle Testing Right Comments Strength is 5/5. Left Internal Rotation 4+ Good+ Comments Strength is 5/5 except as indicated above. PT-OP-Q Treatments Start: 02/07/24 17:13 Freq: Status: Active Protocol: Document 04/16/24 09:52 LRN (Rec: 04/16/24 11:08 LRN [id number]) Therapeutic Exercises Supine Exercises Alt arm drop/knee to chest Supine Exercise Name TA/Exhale/Kegel with ktc and retright Kegel with leg ext Side bilateral Reps/Minutes 10x each Comments Extra time needed for pt awareness trning for DR protection upper trunk Knee to chest Supine Exercise Name Training of TA tight, pt assessing DR with ex and breath Side bilateral Reps/Minutes 10x each Comments Extra time needed for pt awareness trning for DR protection Hamstring/LE neural stretch Supine Exercise Name Hamstrring stretch w/ankle pumps Side bilateral Reps/Minutes 60 SH each with ankle pumps as able Comments Cued to not stretch into pain with ankle pumps Prone Exercises VINCE Prone Exercise Name VINCE abdominal stretch Reps/Minutes 3 Breath hold x 6 Sitting Exercises Hip AD stretch Sitting Exercise Name SL on plinth Side left Reps/Minutes 2' Other Exercises 1/knee Psoas stretch Other Exercise Name 1/2 kneel Psoas stretch Side bilateral Reps/Minutes 5' Comments Extra time taken to determine max arik stretch Modified Child's pose Other Exercise Name Child's Pose - hip AD stretch w/gentle reverse Kegel f/b Kegel to end Reps/Minutes 10x Therapeutic Activity Therapeutic Activity Run activity Name Running with proper form and breathwork, relaxing body w/ run Reps/Minutes 18' Comments Holds L shoulder girdle tight, causing decreased L arm swing (or loose in R dominant side) . 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 Self-Care/Home Management Treatment Activities Self-Care/Home Management Activities Issued & brief review w/pt making self notes on her HEP handout. HEP: Alt arm/leg work with I/ S in breath and if Kegel needed; & standing trunk rot for DR protection with I/S in breath and Kegel if needed. PT-OP-T Assessment and Plan Start: 02/07/24 17:13 Freq: Status: Active Protocol: Document 04/16/24 09:52 LRN (Rec: 04/16/24 11:08 LRN [id number]) Physical Therapy Assessment Goals Two Impairment Stress Urinary Leakage w/ running, coughing, sneezing, lifting, occ walk Short Term Goal (STG) Improve PF strength and modify positioning to reduce feeling of incomplete emptying after urination, no leakage with coughing, sneezing or lifting. STG Duration 6 wks-03/28/24 [facility] Goal (LTG) Eliminate urinary incontinence with occasional walking and light running. 04/16/24: Pt leaking, is going to use pessary to be able to go on run. LTG Duration 12 wks-05/09/24 One Impairment Pt lacks appropriate self care HEP. Short Term Goal (STG) Education in proper methods for transfer with coordination of breathing, PF contractions , and proper vulvar/genital care. 03/06/24: Pt educated in proper method for transfer w/ coordination of breathing, PF relaxation. 03/24/24: Pt educated in vulvar/genital care. STG Duration 03/24/24: MET GOAL Plastics Technician Goal (LTG) Pt will be independent with a self care HEP of PF/core strengthening and hip/trunk ROM exercises. 02/20/24: Reviewed briefly pt 's current stretches she does for running. 03/17/24: HEP: Piriformis stretch (sup & sit), prone on elbows/hands, loreta BKFO, SL hip AD stretch and sup trunk rot stretch and sit stretch w/ instructions to do in standing . 04/16/24: HEP: Alt arm/leg work with I/S in breath and if Kegel needed; & standing trunk rot for DR protection with I/S in breath and Kegel if needed. LTG Duration 12 wks-05/09/24 progressed 04/16/24 Assessment Summary Assessment 38 yo female who presents with KENNETH, PF tenderness/tightness; therefore PF weakness; mild cystocele, and urethrocele, asymmetry of hip/trunk mobility, mild diastasis rectus of upper trunk>lower, mild core instability, and postural deviations (tight hips) and difficulty doing a proper abdominial breath ( instead chest breathing). New approval per pt is for 6 more visits, but she probably won't be able to get in until Jul due to no appts for a month and no place for kids to go during the summer. Pt run is this so use of pessary to prevent leakage was needed. Pt was given a progressive HEP of core work and I/S in breathwork when to ex PF, pt appeared to have a good understanding. Physical Therapy Plan Frequency and Duration Frequency of Treatment 1x/Week Duration of treatment (weeks) 12 Plan of Care Start Date 02/13/24 Plan of Care End Date 05/09/24 Next Visit Focus/Plan Next Note Type Treatment Note Next Visit Plan Next: Review Deep Breathing ( DB) and core pressure management.Assess response to: core strengthening (deep rotators) and hip/trunk mobility for improvement. Add to HEP: Hamstring/LE neural stretch. EXERS to monitor: Hip stretch (R>L IR, L>R ER), trunk stretch (trunk R SB, L rot). VEMG PF training for relaxation and strengthening ( Long . Quick contractios). POC: 12 visits total with new approval. PF/core Strengthening, EXER stretches, manual abdominal soft tissue mob (uterus/bladder/urachus), Gait/running follow up, biofeedback, neuro-reeduc.
--- NOTE | 2024-04-17 19:20 | PT.OPPN ---
Current Diagnoses Stress incontinence (female) (male) (04/16/24) Physical Therapy Progress Note PT-OP-A Visit Information Start: 02/07/24 17:13 Freq: Status: Active Protocol: Document 04/16/24 09:52 LRN (Rec: 04/16/24 11:08 LRN [id number]) Out-Patient Physical Therapy Visit Information Visit Information Visit Type Treatment Note Visit Note Pt states she has been allowed 6 more visits. Visit Start Time 09:52 Visit Stop Time 10:43 Visit Number 05/06 Evaluation Information Evaluation Date 02/13/24 Precautions Precautions None. PT-OP-B Current Condition Start: 02/07/24 17:13 Freq: Status: Active Protocol: Document 02/13/24 13:48 LRN (Rec: 02/13/24 17:11 LRN [id number]) Current Condition History of Current Condition Onset Date 10/2016 Current Complaints Leaks with running, jumping, sneezing, lifting, walking depending on cycle. History of Current Condition Pt reports having urinary incontinence during late stages of of her first (in the [place]). She states her leaking is worsening after because she is doing more strenuous exercise. She wears a thick pad at gym, that fills up and sometimes she has to change into another one. If seh ex's in the morning she can wear a thinner pad. She also reports going to the bathroom frequently. She has urinary leakage with exercise, running, sometimes walking, lifting, sneezing and coughing. Prior Treatments and Tests She was on a wait list for PT, but [place]. Developmental History Developmental History Pt has 2 children, ages 4 & 7 (births 12/2016 & 09/2019), both vaginal births. 1st resulted in episotomy with vacuum extraction, 2nd was in a tub, normal vaginal . Pt is a [place] national, living in since 11/2021. Pt states she was [place] to [facility] Prior to pt reports running 4-5x/wk, 3-5 miles per run. She was active playing basketball and hiking. Delivered positions: 1st - on back, 2nd - in bath, partially on back with L leg lifted and held by spouse. Treatment Goals Patient/Caregiver Goals Pt goals: Eliminate urinary incontinence with exercise activities and activities causing leakage. Pt agreeable to a HEP, and education. 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 PT-OP-C Subjective Start: 02/07/24 17:13 Freq: Status: Active Protocol: Document 04/16/24 09:52 LRN (Rec: 04/16/24 11:08 LRN [id number]) OP-PT Subjective Patient Comments Patient Comments States she can't get back in until April right now. Run planned for Sat, having a pessary fitting today. Doing a timed run in summer. PT-OP-I Pelvic Floor Start: 02/07/24 17:13 Freq: Status: Active Protocol: Document 03/24/24 14:35 LRN (Rec: 03/24/24 15:54 LRN [id number]) Pelvic Floor Assessment SEMG (uV) Baseline 1.0 Quick Contraction 8.9 10 Second Contraction 8.9 Recruitment Pattern Good Relaxation Poor/Slow Holding Fair Stability of Hold Fair SEMG Stability of Rest Poor/Slow Comments Pelvic Floor Comments Pt supine w/LE's on bolster, hands across chest. Quick Contractions: 10x relax is 4.8 mV's Long Hold: 10x relax is 2.8 mV's. PT-OP-J Posture/Palpation/Skin Start: 02/07/24 17:13 Freq: Status: Active Protocol: Document 02/13/24 13:48 LRN (Rec: 02/13/24 17:11 LRN [id number]) Posture Evaluation Position Standing T-Spine Posture Flattened L-Spine Posture Decreased Lordosis Shoulder Posture (L) Elevated Foot Arch (R) Medium Arch,(L) Low Arch Comments Posture Comments Outward bowing of lower legs, mild dowagers hump, slight low L ilac crest. R foot positioned fwrd of L foot. Palpation Assessment Location Abdomen Palpation Location Diastas Rectus Palpation Details Umbilicus 3 above: closed Umbilicus 2 above: 1.0 finger widths Umbilicus 1 above: 1.5 finger widths Umbilicus Umbilicus: 1 below: 1.5 finger widths Umbilicus: 2 below: closed PT-OP-K Range of Motion Start: 02/07/24 17:13 Freq: Status: Active Protocol: Document 03/06/24 13:02 LRN (Rec: 03/06/24 14:01 LRN [id number]) Hip Goniometric Range of Motion Hip Measured in Degrees Right Passive Testing Position Supine Abduction 40 Internal Rotation 35 External Rotation 50 Left Passive Testing Position Supine Abduction 40 Internal Rotation 40 External Rotation 35 PT-OP-M Strength Start: 02/07/24 17:13 Freq: Status: Active Protocol: Document 02/13/24 13:48 LRN (Rec: 02/13/24 17:11 LRN [id number]) Trunk Strength Trunk Manual Muscle Testing Core Stabilization Pt was able to maintain core stability with MMT of hips. Hip Strength Hip Manual Muscle Testing Right Comments Strength is 5/5. Left Internal Rotation 4+ Good+ Comments Strength is 5/5 except as indicated above. PT-OP-T Assessment and Plan Start: 02/07/24 17:13 Freq: Status: Active Protocol: Document 04/17/24 19:16 LRN (Rec: 04/17/24 19:18 LRN [id number]) Physical Therapy Assessment Rehab Potential Rehabilitation Potential Good Evaluation Complexity Number of Personal Factors/Comorbidities 1-2 Number of Body Systems Impaired 4 or More Clinical Presentation at Evaluation Evolving Impairments Impairments Activity Tolerance,Pain, Posture,ROM,Soft Tissue Mobility,Strength Other Impairments Possible run mechanics due to decreased plantar arch of L foot. Goals Two Impairment Stress Urinary Leakage w/ running, coughing, sneezing, lifting, occ walk Short Term Goal (STG) Improve PF strength and modify positioning to reduce feeling of incomplete emptying after urination, no leakage with coughing, sneezing or lifting. STG Duration 6 wks-05/29/24 [employer] Goal (LTG) Eliminate urinary incontinence with occasional walking and light running. LTG Duration 16 wks-08/07/24 One Impairment Pt lacks appropriate self care HEP. Short Term Goal (STG) Education in proper methods for transfer with coordination of breathing, PF contractions , and proper vulvar/genital care. 03/06/24: Pt educated in proper method for transfer w/ coordination of breathing, PF relaxation. 03/24/24: Pt educated in vulvar/genital care. STG Duration 03/24/24: MET GOAL [employer] Goal (LTG) Pt will be independent with a self care HEP of PF/core strengthening and hip/trunk ROM exercises. 02/20/24: Reviewed briefly pt 's current stretches she does for running. 03/17/24: HEP: Piriformis stretch (sup & sit), prone on elbows/hands, loreta BKFO, SL hip AD stretch and sup trunk rot stretch and sit stretch w/ instructions to do in standing . LTG Duration 16 wks-08/07/24 progressed 03/17/24 Assessment Summary Assessment 38 yo female who presents with KENNETH, PF tenderness/tightness; therefore PF weakness; mild cystocele, and urethrocele, asymmetry of hip/trunk mobility, mild diastasis rectus of upper trunk>lower, mild core instability, and postural deviations (tight hips) and difficulty doing a proper abdominial breath ( instead chest breathing). New approval per pt is for 6 more visits, but she probably won't be able to get in until Jul next due to no appts for a month and no place for kids to go during the summer. Pt run is this weekend so use of pessary to prevent leakage was needed. Pt was given a progressive HEP of core work and I/S in breathwork when to ex PF, pt appeared to have a good understanding. The pt would benefit from continued skilled physical therapy to continue working towards achieving the above stated goals. Physical Therapy Plan Frequency and Duration Frequency of Treatment 1x/Week Duration of treatment (weeks) 16 Plan of Care Start Date 04/17/24 Plan of Care End Date 08/07/24 Therapeutic Interventions Therapeutic Interventions Gait Training,Home Exercise Program,Joint Mobilizations, Manual Therapy,Neuromuscular Re-education,Self-Care/Home Management,Soft Tissue Mobilization,Taping, Therapeutic Activities, Therapeutic Exercises Modalities Biofeedback,Electric Stimulation Next Visit Focus/Plan Next Note Type Treatment Note Next Visit Plan Next: Review Deep Breathing ( DB) and core pressure management.Assess response to: core strengthening (deep rotators) and hip/trunk mobility for improvement. Add to HEP: Hamstring/LE neural stretch. EXERS to monitor: Hip stretch (R>L IR, L>R ER), trunk stretch (trunk R SB, L rot). VEMG PF training for relaxation and strengthening ( Long . Quick contractios). POC: 12 visits total with new approval. PF/core Strengthening, EXER stretches, manual abdominal soft tissue mob (uterus/bladder/urachus), Gait/running follow up, biofeedback, neuro-reeduc.
--- NOTE | 2024-04-17 19:21 | PT.OPPOC ---
Physical, Occupational & Speech Therapy At [facility] Current Diagnoses Stress incontinence (female) (male) (04/16/24) Visit Care Team Role Provider Type Erica Neves DO Family Provider Non-Staff Primary Care Provider Specialty: Medical Address: [address] [place] [address], [id number] Email: Loretta Valdovinos DO Attending Provider Physician Referring Provider Specialty: CERTIFIED PHYSICAL THERAPIST ASSISTANT Address: [address] [place] [address], [address], [place], [address] Email: [email or web address] Plan Of Care PT-OP-T Assessment and Plan Start: 02/07/24 17:13 Freq: Status: Active Protocol: Document 04/17/24 19:16 LRN (Rec: 04/17/24 19:18 LRN [id number]) Physical Therapy Assessment Rehab Potential Rehabilitation Potential Good Evaluation Complexity Number of Personal Factors/Comorbidities 1-2 Number of Body Systems Impaired 4 or More Clinical Presentation at Evaluation Evolving Impairments Impairments Activity Tolerance,Pain, Posture,ROM,Soft Tissue Mobility,Strength Other Impairments Possible run mechanics due to decreased plantar arch of L foot. Goals Two Impairment Stress Urinary Leakage w/ running, coughing, sneezing, lifting, occ walk Short Term Goal (STG) Improve PF strength and modify positioning to reduce feeling of incomplete emptying after urination, no leakage with coughing, sneezing or lifting. STG Duration 6 wks-05/29/24 [employer] Goal (LTG) Eliminate urinary incontinence with occasional walking and light running. LTG Duration 16 wks-08/07/24 One Impairment Pt lacks appropriate self care HEP. Short Term Goal (STG) Education in proper methods for transfer with coordination of breathing, PF contractions , and proper vulvar/genital care. 03/06/24: Pt educated in proper method for transfer w/ coordination of breathing, PF relaxation. 03/24/24: Pt educated in vulvar/genital care. STG Duration 03/24/24: MET GOAL [employer] Goal (LTG) Pt will be independent with a self care HEP of PF/core strengthening and hip/trunk ROM exercises. 02/20/24: Reviewed briefly pt 's current stretches she does for running. 03/17/24: HEP: Piriformis stretch (sup & sit), prone on elbows/hands, loreta BKFO, SL hip AD stretch and sup trunk rot stretch and sit stretch w/ instructions to do in standing . LTG Duration 16 wks-08/07/24 progressed 03/17/24 Assessment Summary Assessment 38 yo female who presents with KENNETH, PF tenderness/tightness; therefore PF weakness; mild cystocele, and urethrocele, asymmetry of hip/trunk mobility, mild diastasis rectus of upper trunk>lower, mild core instability, and postural deviations (tight hips) and difficulty doing a proper abdominial breath ( instead chest breathing). New approval per pt is for 6 more visits, but she probably won't be able to get in until Jul next due to no appts for a month and no place for kids to go during the summer. Pt run is this weekend so use of pessary to prevent leakage was needed. Pt was given a progressive HEP of core work and I/S in breathwork when to ex PF, pt appeared to have a good understanding. The pt would benefit from continued skilled physical therapy to continue working towards achieving the above stated goals. Physical Therapy Plan Frequency and Duration Frequency of Treatment 1x/Week Duration of treatment (weeks) 16 Plan of Care Start Date 04/17/24 Plan of Care End Date 08/07/24 Therapeutic Interventions Therapeutic Interventions Gait Training,Home Exercise Program,Joint Mobilizations, Manual Therapy,Neuromuscular Re-education,Self-Care/Home Management,Soft Tissue Mobilization,Taping, Therapeutic Activities, Therapeutic Exercises Modalities Biofeedback,Electric Stimulation Next Visit Focus/Plan Next Note Type Treatment Note Next Visit Plan Next: Review Deep Breathing ( DB) and core pressure management.Assess response to: core strengthening (deep rotators) and hip/trunk mobility for improvement. Add to HEP: Hamstring/LE neural stretch. EXERS to monitor: Hip stretch (R>L IR, L>R ER), trunk stretch (trunk R SB, L rot). VEMG PF training for relaxation and strengthening ( Long . Quick contractios). POC: 12 visits total with new approval. PF/core Strengthening, EXER stretches, manual abdominal soft tissue mob (uterus/bladder/urachus), Gait/running follow up, biofeedback, neuro-reeduc. Plan of Care Dates Plan of Care Start Date 04/17/24 Plan of Care End Date 08/07/24 Electronically Signed by: Yoli Vazquez, PT 04/17/24 1921 If you are in agreement with this Plan of Care, please return a signed and dated copy. I have reviewed this Plan of Care and certify that the skilled therapy services above are required to meet the patient?s needs. Physician Signature Date Printed Name and Credentials Clinical Instructor Signature Printed Name and Credentials
--- NOTE | 2024-08-06 17:11 | PT.OTN ---
Current Diagnoses Stress incontinence (female) (male) (08/06/24) Physical Therapy Treatment Note PT-OP-A Visit Information Start: 02/07/24 17:13 Freq: Status: Active Protocol: Document 08/06/24 09:46 LRN (Rec: 08/06/24 10:41 LRN [id number]) Out-Patient Physical Therapy Visit Information Visit Information Visit Type Treatment Note Visit Start Time 09:46 Visit Stop Time 10:41 Visit Number 06/05 Evaluation Information Evaluation Date 02/13/24 Precautions Precautions None. PT-OP-B Current Condition Start: 02/07/24 17:13 Freq: Status: Active Protocol: Document 02/13/24 13:48 LRN (Rec: 02/13/24 17:11 LRN [id number]) Current Condition History of Current Condition Onset Date 10/2016 Current Complaints Leaks with running, jumping, sneezing, lifting, walking depending on cycle. History of Current Condition Pt reports having urinary incontinence during late stages of of her first (in the [place]). She states her leaking is worsening after because she is doing more strenuous exercise. She wears a thick pad at gym, that fills up and sometimes she has to change into another one. If seh ex's in the morning she can wear a thinner pad. She also reports going to the bathroom frequently. She has urinary leakage with exercise, running, sometimes walking, lifting, sneezing and coughing. Prior Treatments and Tests She was on a wait list for PT, but [place]. Developmental History Developmental History Pt has 2 children, ages 4 & 7 (births 12/2016 & 09/2019), both vaginal births. 1st resulted in episotomy with vacuum extraction, 2nd was in a tub, normal vaginal . Pt is a [place] national, living in since 11/2021. Pt states she was [place] to [facility], [place] Prior to pt reports running 4-5x/wk, 3-5 miles per run. She was active playing basketball and hiking. Delivered positions: 1st - on back, 2nd - in bath, partially on back with L leg lifted and held by spouse. Treatment Goals Patient/Caregiver Goals Pt goals: Eliminate urinary incontinence with exercise activities and activities causing leakage. Pt agreeable to a HEP, and education. 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 PT-OP-C Subjective Start: 02/07/24 17:13 Freq: Status: Active Protocol: Document 08/06/24 09:46 LRN (Rec: 08/06/24 10:41 LRN [id number]) OP-PT Subjective Patient Comments Patient Comments States she was approved 6 visits, but last night got an email that said her insurance time will be lapsing; therefore she can't be seen for further treatments. Pt wants to know the best way to work on herself. Goes back to next year. Did race and wore a pad and has a pessary, that is uncomfortable. Patient Reported Progress Improving Patient Questionnaires Pelvic Pain and Urgency/Frequency Patient Symptom Scale Pelvic Pain Score 9 PT-OP-I Pelvic Floor Start: 02/07/24 17:13 Freq: Status: Active Protocol: Document 03/24/24 14:35 LRN (Rec: 03/24/24 15:54 LRN [id number]) Pelvic Floor Assessment SEMG (uV) Baseline 1.0 Quick Contraction 8.9 10 Second Contraction 8.9 Recruitment Pattern Good Relaxation Poor/Slow Holding Fair Stability of Hold Fair SEMG Stability of Rest Poor/Slow Comments Pelvic Floor Comments Pt supine w/LE's on bolster, hands across chest. Quick Contractions: 10x relax is 4.8 mV's Long Hold: 10x relax is 2.8 mV's. PT-OP-J Posture/Palpation/Skin Start: 02/07/24 17:13 Freq: Status: Active Protocol: Document 08/06/24 09:46 LRN (Rec: 08/06/24 16:45 LRN [id number]) Palpation Assessment Location Abdomen Palpation Location Diastas Rectus Palpation Details Umbilicus 3 above: 1/2 finger width, shallow Umbilicus 2 above: 1.25 finger width, shallow Umbilicus 1 above: 1.5 finger width Umbilicus Umbilicus: 1 below: 1.25 finger widths Umbilicus: 2 below: 1 finger width, shallow Umbilicus: 3 below: 0/25 finger width, very shallow PT-OP-K Range of Motion Start: 02/07/24 17:13 Freq: Status: Active Protocol: Document 08/06/24 09:46 LRN (Rec: 08/06/24 10:41 LRN [id number]) Lumbar Spine Range of Motion Lumbar Spine Active Degrees Testing Position Standing Rotation Left 20 Rotation Right 20 Lateral Flexion Left 13 Lateral Flexion Right 13 Hip Goniometric Range of Motion Hip Right Passive Testing Position Supine Straight Leg Raise 90 Internal Rotation 30 External Rotation 65 Left Passive Testing Position Supine Straight Leg Raise 65 Internal Rotation 30 External Rotation 50 PT-OP-M Strength Start: 02/07/24 17:13 Freq: Status: Active Protocol: Document 02/13/24 13:48 LRN (Rec: 02/13/24 17:11 LRN [id number]) Trunk Strength Trunk Manual Muscle Testing Core Stabilization Pt was able to maintain core stability with MMT of hips. Hip Strength Hip Manual Muscle Testing Right Comments Strength is 5/5. Left Internal Rotation 4+ Good+ Comments Strength is 5/5 except as indicated above. PT-OP-Q Treatments Start: 02/07/24 17:13 Freq: Status: Active Protocol: Document 08/06/24 09:46 LRN (Rec: 08/06/24 10:41 LRN [id number]) Therapeutic Exercises Supine Exercises Trunk SB stretch Side bilateral Reps/Minutes 10 SH x 8 TA tightening Supine Exercise Name TA/Head lifts Reps/Minutes 6' Comments See palpation results and DR discussed. Hamstring/LE neural stretch Supine Exercise Name Hamstrring stretch w/ankle pumps Side bilateral Reps/Minutes 60 SH f/b 10 ankle pumps x 3 Comments Cued to not stretch into pain w/ankle pumps & hold HS stretch throughout Trunk rot stretch Side bilateral Reps/Minutes 10 SH x 8 Hip ER stretch Supine Exercise Name Reviewed as important Reps/Minutes 1' Deep Breathing Supine Exercise Name Reviewed, and note as important Reps/Minutes 3' Comments Req'd physical self cue of hand on chest and abdomen Piriformis stretch Side bilateral Reps/Minutes 10 SH x 6 Comments Cued pt that this is important ex Kegel w/relaxation push Supine Exercise Name Reviewed as important to perform relaxation after contractions. Reps/Minutes 2' Prone Exercises VINCE Prone Exercise Name Reviewed HEP as less important Reps/Minutes 1' Sitting Exercises Hip AD stretch Sitting Exercise Name Reviewed as important Reps/Minutes 1' Self-Care/Home Management Treatment Activities Self-Care/Home Management Activities Issued & reviewed HEP: LE neural glides (sit/sup), trunk rotation & SB stretch, Core strengthening with proper breath mechanics/Kegel: Sit trunk rot (pt can do standing) , kneeling trunk rot strengthening with TBand. PT-OP-T Assessment and Plan Start: 02/07/24 17:13 Freq: Status: Active Protocol: Document 08/06/24 09:46 LRN (Rec: 08/06/24 10:41 LRN [id number]) Physical Therapy Assessment Goals Two Impairment Stress Urinary Leakage w/ running, coughing, sneezing, lifting, occ walk Short Term Goal (STG) Improve PF strength and modify positioning to reduce feeling of incomplete emptying after urination, no leakage with coughing, sneezing or lifting. 08/06/24: Still has feeing of incomplete emptying after urination but feels it is improved, feels she is only leakaing specific times of month and day and coffee/H20 is helpful. Premensrually she leaks more, leaks more in afternoon. Otherwise not leaking with walking and w/ sneezing doesn't have to cross her legs as much to avoid leaking. STG Duration 6 wks-05/29/24 (08/06/24: Improved, NOT MET GOAL) Circuit [employer]ider Goal (LTG) Eliminate urinary incontinence with occasional walking and light running. 08/06/24: Walks w/o leakaing. Light running other than premenstual, sometimes leaks; premenstrual always leaks. LTG Duration 16 wks-08/07/24 (08/06/24: Improved, NOT MET GOAL) One Impairment Pt lacks appropriate self care HEP. Short Term Goal (STG) Education in proper methods for transfer with coordination of breathing, PF contractions , and proper vulvar/genital care. 03/06/24: Pt educated in proper method for transfer w/ coordination of breathing, PF relaxation. 03/24/24: Pt educated in vulvar/genital care. STG Duration 03/24/24: MET GOAL [employer]ider Goal (LTG) Pt will be independent with a self care HEP of PF/core strengthening and hip/trunk ROM exercises. 03/28/24: Reviewed briefly pt 's current stretches she does for running. 03/17/24: HEP: Piriformis stretch (sup & sit), prone on elbows/hands, loreta BKFO, SL hip AD stretch and sup trunk rot stretch and sit stretch w/ instructions to do in standing . 08/06/24: HEP: LE neural glides (sit/sup), trunk rotation & SB stretch, Core strengthening with proper breath mechanics/Kegel: Sit trunk rot (pt can do standing) , kneeling trunk rot strengthening with TBand. LTG Duration 16 wks-08/07/24 (08/06/24: MET GOAL) Assessment Summary Assessment Pt is a 38 yo female who attended 7 of 12 visits approved in 6 months for various reasons. She was being seen for stress urinary incontinence, PF tenderness/ tightness, PF weakness; mild cystocele, and urethrocele, asymmetry of hip/trunk mobility, mild diastasis rectus of upper trunk>lower, mild core instability, and postural deviations (tight hips) and difficulty doing a proper deep breathing (chest breathes). 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 Her timeframe approved for physical therapy is soon expiring and since the pt is expecting to move back to the , she has decided to make today her last treatment session and wanted only to be placed on a HEP of most important exercises to focus on. I reviewed her HEP and because her DR has slightly worsened, she was given ex's to improve her transverse abdominal strength in order to promote closure and stability of her core. The pt's PF was not manually assessed, as she was primarily interested in exercises and she felt her urinary leakage has been improving. I would recommend the pt seek further woman's health physical therapy in the future because the pt may PF tightness that will limit her ability strengthen the PF muscles and hinder her progress towards return to continence. Physical Therapy Plan Discharge Physical Therapy Discharge Reasons Patient Request Discharge Comments Pt did not meet all her goals due to not completing her rehab program for various reasons. The pt will most likely need woman's health physical therapy in the future to address her tight and weak PF muscles, core stabilization with closure of her DR and resolution of her urinary incontinence, which I believe is very possible. Thank you for your referral.
== END 2024-08-11 14:41 | disposition home or self-care (01) ==
LOC: PHYS 09:45
PROVIDERS: Family Provider Family Medicine; PCP Family Medicine; Referring Provider Student in an Organized Health Care Education/Training Program; Visit Provider Student in an Organized Health Care Education/Training Program
DX: N39.3 Stress incontinence (female) (male) (principal)
CPT/HCPCS: 97110; 97112; 97140; 97162; 97530; 97535